=== PATIENT | female | born 1960 | race Two or more races ===

== ENCOUNTER 2020-09-18 11:15 | Inpatient (IN) | payer OTHER ==
[~2020-09-18] VITALS: Ht 154.9 cm; Wt 113.4 kg
[2020-09-18] MEDS ORDERED: FORTAMET500 MG PO (14:29)
[2020-09-19] MEDS ORDERED: CLOTRIMAZOLE-BE15 G1 (16:09)
== END 2020-09-21 13:57 | disposition home or self-care (01) | DRG 743 ==
LOC: O/R 09-19 06:27 → OB/GYN 09-19 11:15
PROVIDERS: ADMIT Specialist; ATTEND Specialist
PROC: 0UT20ZZ Resection of Bilateral Ovaries, Open Approach (ICD-10-PCS; 2020-09-19)
PROC: 0UT70ZZ Resection of Bilateral Fallopian Tubes, Open Approach (ICD-10-PCS; 2020-09-19)
PROC: 07BC0ZZ Excision of Pelvis Lymphatic, Open Approach (ICD-10-PCS; 2020-09-19)
PROC: 0UT90ZZ Resection of Uterus, Open Approach (ICD-10-PCS; principal; 2020-09-19 14:00)
DX: N80.0 Endometriosis of uterus (principal); N88.8 Other specified noninflammatory disorders of cervix uteri; N73.6 Female pelvic peritoneal adhesions (postinfective); N83.292 Other ovarian cyst, left side; N83.291 Other ovarian cyst, right side; E11.9 Type 2 diabetes mellitus without complications; N83.8 Other noninflammatory disorders of ovary, fallopian tube and broad ligament